=== PATIENT | female | born 1985 | race Caucasian/White ===

== ENCOUNTER → 2022-12-21 12:53 | Outpatient (CLI) | payer OTHER, SELFPAY ==
--- NOTE | ~2022-12-21 | US_ITS ---
EXAMINATION: US pelvic complete DATE: 12/21/2022 13:23 INDICATION: Pelvic pain Comparison:No prior studies for comparison. TECHNIQUE: Multiple transabdominal and endovaginal sonographic images of the pelvis performed. FINDINGS: The uterus measures 10.7 x 3.9 x 5.3 cm. Uterus is enlarged and retroverted The endometrial complex measures 12 mm. The right ovary measures 3.9 x 2 x 2.8 cm and the left ovary measures 3.5 x 2.6 x 3.6 cm. There are small follicles in each ovary. Normal doppler signal in both ovaries. There is no free fluid in the pelvis. There are no abnormal masses seen on either side. IMPRESSION: 1. Mild endometrial thickening. 2: Enlarged uterus. Reviewed, dictated and finalized at location B.
--- NOTE | ~2022-12-21 | US_ITS ---
EXAMINATION: US thyroid DATE: 12/21/2022 13:23 INDICATION: Enlarging left thyroid nodule TECHNIQUE: Multiple ultrasound images of the thyroid were obtained. COMPARISON: None. FINDINGS: The right thyroid lobe is not visualized, reportedly surgically absent, with no remaining thyroid tis cadence in the thyroidectomy bed. The left thyroid lobe measures 6.1 x 1.9 x 2.2 cm. There are a few sma ll nodules in the left thyroid. The largest is a 1.7 cm wider than tall mixed solid and cystic nodule with smooth margins, hypoechoic solid component and no echogenic foci (TI-RADS 3, mildly suspicious , FNA if >=2.5 cm, annual followup is >=1.5 cm). There is a 9 mm solid wider than tall isoechoic nodu le with smooth margins and without echogenic foci, also TI RADS 3. Finally there couple additional 4 mm nodules, one in a TI-RADS 1 cystic nodule and the second very hypoechoic, potentially solid with i nternal echogenic focus (TI-RADS 5, highly suspicious , FNA if >=1.0 cm, annual followup is >0.5 cm). IMPRESSION: 1. Status post right thyroidectomy with a few left thyroid nodules including the largest 1.7 cm TI RA DS 3 nodule for which annual follow-up would be recommended. Reviewed, dictated and finalized at location A. IMPRESSION: 1. Status post right thyroidectomy with a few left thyroid nodules including th e largest 1.7 cm TI RADS 3 nodule for which annual follow-up would be recommend ed.
== END ==
PROVIDERS: PCP Internal Medicine; Visit Provider Nurse Practitioner
DX: R10.2 Pelvic and perineal pain (principal); E04.1 Nontoxic single thyroid nodule; N85.2 Hypertrophy of uterus
CPT/HCPCS: 76536; 76856

== ENCOUNTER 2023-03-06 02:14 | Day surgery (SDC) | payer OTHER, SELFPAY ==
[2023-03-01 14:20] VITALS: BMI 21.7
--- NOTE | 2023-03-01 14:30 | PC.NURSE ---
Report to the Outpatient Waiting Room, entrance under the green pavilion located off [facility], at time _0815____ on date __03/06/23 . Planned Procedure Time: __1015 . Time changes happen often and if your time is changed the preop area will call you the afternoon before. - You and your visitor will be asked to self-screen and do not enter if you have any COVID symptoms. - A mask is optional within the hospital at this time. Patients may have clear liquids (water, carbonated beverages, clear teas, apple juice) until 3 hours prior to surgery with a maximum of 20 ounces. - No food from midnight until time of surgery - Infants may have breast milk until 4 hours before surgery, formula 6 hours prior to surgery. - Children will be allowed to drink immediately following surgery. If applicable, please bring a bottle or sippy cup to assist with drinking. Juice, water, soda, and popsicles are readily available. For infants on formula, please bring formula the day of surgery. Pacifiers are allowed. Take the following medications with a SIP of water the morning of surgery: ___Lorazepam PRN DO NOT STOP ANY OF YOUR OTHER PRESCRIPTION MEDICATIONS PRIOR TO SURGERY ?EXCEPT THE FOLLOWING Medications to discontinue per physician N/A Date to take last dose N/A Please no make-up, nail guyanese, hairspray, perfume, deodorant, or body powder the day of surgery. No jewelry (including any body piercings) or valuables the day of surgery, leave them at home. Please take a shower or bath the night before, or the morning of, surgery with an antibacterial soap. Wear comfortable, loose fitting clothing. Children are encouraged to wear pajamas. - Jewelry must be removed prior to entering the operating room. Rings and piercings that are not removed may be cut off. - The hospital will not accept responsibility for valuables. - Please leave all valuables, including medications, at home the day of surgery. If you are going home after surgery, a licensed trailer truck driver must drive you home. - NO public transportation without another adult if you receive anesthesia. - We recommend that an adult stay with you for 24 hours following discharge. - We also recommend that you do not drive, make important decision, drink alcoholic beverages, or take any drugs that were not prescribed by your health care provider for at least 24 hours after your discharge time. For Pediatric surgeries, we recommend two adults accompany the child home. Follow any additional instructions given to you from your surgeon. If you or anyone in your household have experienced Covid symptoms in the past week, please notify your surgeon or the nurse liaison at the phone number below for possible testing. Telephone instructions given to ____Ariadne Schultz and asked if any additional questions and then verbalized understanding. Patient advised to call surgeon office or pre surgery nurse liaison [phone] if any additional questions.
--- NOTE | 2023-03-06 07:23 | WPDHPUPDATE1 ---
History and Physical Update Update Date/Time: 03/06/23 07:23 History and Physical has been reviewed, including an updated exam of the patient. There are NO changes in the patient's condition. Risks, benefits, and alternatives have been discussed and questions answered. Patient agrees to proceed with procedure.
--- NOTE | 2023-03-06 07:23 | PM.HPGS ---
History of Present Illness History of Present Illness Consent: Risks, benefits, and alternatives have been discussed and questions answered. Patient agrees to proceed with procedure. Chief complaint: Menorrhagia, Dysmenorrhea Narrative: Ariadne Schultz is a 37 year old female with spotting between cycles and significant cramping. Pelvic ultrasound showed an enlarged uterus without specific lesions. It was recommended to undergo D&C hysteroscopy to further evaluate. Risks of infection, bleeding, and perforation were reviewed. Possible pathology was discussed. Patient voices understanding and agrees to proceed. Review of Systems Review of Systems: not repeated day of surgery; patient states no changes in status [facility] Past Medical History Medical History (Updated 03/06/23 @ 07:26 by Trupti Mendoza MD) Bipolar disorder Migraine Surgical History Surgical History (Updated 03/06/23 @ 07:26 by Trupti Mendoza MD) H/O knee surgery x2 H/O partial thyroidectomy right partial thyroidectomy 2014 Family History Family History (Updated 05/16/14 @ 09:24 by DOCTOR UNKNOWN) Other Cerebrovascular accident Depression Family history of Alzheimer's disease Family history of cardiovascular disease Family history of hepatitis Family history of mental disorder Family history of migraine headaches Family history of thyroid disease Social History Social History Years smoked: 2 Smoking status: Former smoker Tobacco type: cigarettes Alcohol intake: current Drinks per week: 1 Living arrangements: alone Spiritual care concerns: No Meds Home Medications and Allergies Home Medications Medication Instructions Recorded Confirmed Type lamotrigine 100 mg tablet 100 mg PO HS 03/01/23 03/01/23 History lorazepam 0.5 mg tablet 0.5 mg PO BID PRN panic attacks 03/01/23 03/01/23 History methylphenidate HCl 27 mg 27 mg PO DAILY 03/01/23 03/01/23 History tablet,extended release 24 hr Allergies Allergy/AdvReac Type Severity Reaction Status Date / Time cefaclor Allergy Unknown Rash Verified 03/01/23 14:02 Exam Const: General: healthy appearing and alert Orientation/consciousness: patient oriented x3 Resp: Effort & Inspection: normal respiratory effort GI: GI Palp: Yes Soft to palpation, No Tenderness to palpation present (GI) and No Palpable mass present : External Female Exam: normal external appearance Speculum Exam - Vagina: normal appearance of the vagina and normal vaginal discharge Speculum Exam - Cervix: normal appearance of the cervix Bimanual exam- vagina & uterus: uterine size normal and consistency normal Bimanual Exam- Adnexa, other: normal adnexae and No adnexal tenderness Neuro: General: patient oriented x3 Assessment and Plan Assessment and plan (1) Irregular intermenstrual bleeding: Code(s): N92.1 - Excessive and frequent menstruation with irregular cycle Status: Acute Assessment and Plan: plan to proceed with D&C hysteroscopy
[2023-03-06 08:24] VITALS: BP 104/64; PULSE 83; RESP 20; TEMP 36.4; O2SAT 100
[2023-03-06] MEDS: ACETAMINOPHEN 500 MG TABLET 1000 MG PO (08:26)
[2023-03-06] MEDS: LACTATED RINGERS 1,000 ML 30 ML IV CONT (08:40)
--- NOTE | 2023-03-06 09:44 | WPDANESEPPF ---
Anes - Initial Pre Proc Eval Procedure: Operation Date: 03/06/23 10:15 Proposed Procedures p Hysteroscopy Dilation and Curettage - Trupti Mendoza MD Date/Time: 03/06/23 09:44 Surgeon: Trupti Mendoza MD Pre Op Diagnosis: Menorrhagia, Dysmenorrhea Patient Data Age: 37 Gender: F Height: 18.11 m Weight: 61.24 kg Last Vital Signs Temp 36.4 C L 03/06/23 08:24 Pulse 83 03/06/23 08:24 Resp 20 03/06/23 08:24 BP 104/64 03/06/23 08:24 Pulse Ox 100 03/06/23 08:24 O2 Del Method Room Air 03/06/23 08:24 Allergies Allergy/AdvReac Type Severity Reaction Status Date / Time cefaclor Allergy Unknown Rash Verified 03/01/23 14:02 Home Medications Medication Instructions Recorded Confirmed Type lamotrigine 100 mg tablet 100 mg PO HS 03/01/23 03/06/23 History lorazepam 0.5 mg tablet 0.5 mg PO BID PRN panic attacks 03/01/23 03/06/23 History methylphenidate HCl 27 mg 27 mg PO DAILY 03/01/23 03/06/23 History tablet,extended release 24 hr Patient hx anesthesia problems: none Family hx anesthesia problems: none Results Review: All pre-operative results and documents have been reviewed as part of the pre-operative evaluation. [facility] Past Medical History Medical History Bipolar disorder Migraine Surgical History Surgical History H/O knee surgery x2 H/O partial thyroidectomy right partial thyroidectomy 2014 Family History Family History Other Cerebrovascular accident Depression Family history of Alzheimer's disease Family history of cardiovascular disease Family history of hepatitis Family history of mental disorder Family history of migraine headaches Family history of thyroid disease Social History Social History Years smoked: 2 Smoking status: Former smoker Tobacco type: cigarettes Alcohol intake: current Drinks per week: 1 Living arrangements: alone Spiritual care concerns: No Anes - Eval Final PreProcedure Day of Procedure 03/06/23 09:44 Patient weight: normal Heart: regular rate and rhythm Lungs: clear to auscultation Airway: Mallampati scale class II Neurological: alert and oriented Last oral intake: >/= 8 hours ASA classification: III Emergent: no Anesthetic plan: proceed Anesthesia type and monitoring: general GIVS and standard monitoring Results Review: All pre-operative results and documents have been reviewed as part of the pre-operative evaluation. Informed Consent: The patient's anesthetic plan and its attendant risks and benefits were discussed with the patient/family/POA. Questions were solicited and answers provided to the satisfaction of the patient/family/POA.
--- NOTE | 2023-03-06 10:23 | W.PM.PROC2 ---
Procedure Note - Detailed Date of Procedure 03/06/23 Pre-op Diagnosis Menorrhagia, Dysmenorrhea Post-op Diagnosis Same Procedure Performed D&C hysteroscopy Surgeon Trupti Mendoza MD Anesthesia MAC Findings cervix is stenotic; uterus sounds to 8cm and is retroverted; endometrium has a secretory appearance Description of Procedure The patient is taken to the operating room and placed under anesthesia in the dorsal lithotomy position. She was prepped and draped in the usual sterile fashion. [place] speculum was placed in the vagina and the cervix grasped on the anterior lip with a tenaculum. The uterus was attempted to be sounded and the internal os is stenotic. The Hegar dilators are used and able to enter the cavity. The cervix is dilated to 4 Hegar. The uterus is noted to be retroverted during this process. The uterus is sounded to 8cm. The hysteroscope is placed and due to the very thickened appearance of the endometrium the small resection device is used to remove the majority of the tissue. The hysteroscope is then removed and the sharp curette used to curette the endometrium until a good uterine cry was noted in all areas. All instruments are removed. Sponge, needle, and instrument counts are correct per the OR staff. The patient is awakened from anesthesia and taken to recovery in stable condition. Estimated Blood Loss 5 Drains No Packing No Pathology Yes ( Endometrial shavings and curettings) Complications No immediate complications Condition Stable Disposition PACU
[2023-03-06 10:24] VITALS: BP 124/76; PULSE 72; RESP 16; O2SAT 100
[2023-03-06 10:30] VITALS: BP 102/63; PULSE 73; RESP 16
[2023-03-06 11:00] VITALS: BP 93/52; PULSE 62; RESP 14
[2023-03-06 11:30] VITALS: BP 92/58; PULSE 62; RESP 16
== END 2023-03-06 11:38 | disposition home or self-care (01) ==
PROVIDERS: PCP Internal Medicine; Visit Provider Obstetrics & Gynecology Gynecology
PROC: 0U5B8ZZ Destruction of Endometrium, Via Natural or Artificial Opening Endoscopic (ICD-10-PCS; CPT 58563; principal; 2023-03-06 10:15)
DX: N92.1 Excessive and frequent menstruation with irregular cycle (principal); F31.9 Bipolar disorder, unspecified; F17.210 Nicotine dependence, cigarettes, uncomplicated; Z82.49 Family history of ischemic heart disease and other diseases of the circulatory system
CPT/HCPCS: 58558; 88305; A9270; J2250; J2704; J3010; J7120

== ENCOUNTER 2023-07-31 13:13 | Outpatient (CLI) | payer OTHER, SELFPAY ==
--- NOTE | ~2023-07-31 | US_ITS ---
Pelvic ultrasound. Clinical History: Intrauterine contraceptive Technique: Realtime transabdominal and transvaginal scanning of the pelvis was performed. Color flow Doppler and Doppler spectral analysis were performed. Findings: The uterus is anteverted, and measures 5.4 x 3.6 x 3.8 cm. The endometrial stripe has a th ickness of 7 mm. IUD in satisfactory position. No focal mass is identified. The right ovary measures 3.4 x 2.1 x 4.0 cm. No significant right ovarian or adnexal mass is seen. The left ovary measures 4.6 x 2.6 4.8 cm. No significant left ovarian or adnexal mass is seen. Small bilateral ovarian cysts are present. There is no evidence of free fluid in the cul de sac. Impression: IUD in satisfactory position. Small bilateral ovarian cysts are of doubtful clinical significance. Reviewed, dictated and finalized at [facility]. Impression: IUD in satisfactory position. Small bilateral ovarian cysts are of doubtful clinical significance.
== END 2023-07-31 13:14 ==
LOC: MICIMG 13:14
PROVIDERS: PCP Obstetrics & Gynecology Gynecology; Visit Provider Obstetrics & Gynecology Gynecology
DX: N83.202 Unspecified ovarian cyst, left side (principal); N83.201 Unspecified ovarian cyst, right side; Z30.431 Encounter for routine checking of intrauterine contraceptive device
CPT/HCPCS: 76856